=== PATIENT | female | born 1965 | race Caucasian/White ===

== ENCOUNTER 2017-04-06 14:47 | Inpatient (IN) | payer OTHER ==
[~2017-04-06] VITALS: Ht 160 cm; Wt 61.2 kg
[2017-04-06 16:45] VITALS: BP 104/67
--- NOTE | 2017-04-06 16:45 | NUR ---
Pre-admission Note: Client is seen in intake at this time. Alert and oriented x 4. Able to verbalize good understanding of the admission process. Appears mildly agitated and anxious. Able to provide consent regarding admission protocols and unit's policies. She states that she is here for ETOH and that she only drank for 1 day. Denies any seizure history. Wishes to be FULL CODE. Follows a regular diet at home. Reports that she has NKA. Denies any past medical hx. VS: BP 104/67, Pulse 104, RR 20, Temp 98.5, PL 0/10. O2 sat 95% RA. CIWA 2 - presented with anxiety and agitation. Will continue with the admission process when patient is up the unit.
--- NOTE | 2017-04-06 17:15 | NUR ---
Body Search/Behavior: Female HUMANE OFFICER attempted body search, however patient strongly refused to have it done and decided to leave the unit. HUMANE OFFICER/Charge Nurse escorted patient back to intake and encouraged patient to stay.
--- NOTE | 2017-04-06 17:25 | NUR ---
Admission Note: Client came back up to the unit at this time. Body search was done with female STORE FACILITY TECHNICIAN and female charge nurse. Patient complied. No contraband was found. Skin check done. No skin breakdown noted. No skin breakdown. Patient is a 51 year old female who states that she is here voluntarily to safely detox from ETOH under the care of Dr. Jian Garcia. No changes in LOC noted since assessing patient in intake. Remains AOx 4. Respirations even and unlabored. No SOB noted. Skin warm and dry to touch. Abdomen soft and non-distended with (+) BS in all 4 quadrants. No complains of N/V/D or constipation noted. Bladder non-distended. Voids independently. Unable to provide urine for UDS at this time and placed on 1:1. States her LMP was "a week ago." Ambulatory ad ryne with steady gait. Denies any allergies and seizure history. Requires encouragement to verbalize concerns and feelings. Appears to be limited with her information. She denies having any past medical hx and surgical hx. Also denies having a PCP at this time. She states that she only relapsed for 1 day while in sober living. She states that she was in a sober living for 3 weeks then relapsed for 1 day. Her longest period of sobriety was 6 months ago. and states "this was a couple of years ago." Educated patient on the policies protocols and procedures. Safety precautions in place. Patient reported that she does not smoke cigarettes. Will continue to monitor closely. Substance Use 1. ETOH (Vodka) drank 4 shots = 180cc x 1 day. Last drink was 04/06/2017 at 1000. Treatment History: 1. Sober Living in [place], [place] = [address] Garcia made aware of patient's arrival in the unit and will come and see the patient.
[2017-04-06] MEDS ORDERED: LORAZEPAM 2 MG/1 ML VIAL IM PRN (18:00)
[2017-04-06] MEDS ORDERED: diphenhydrAMINE 50 MG CAPSULE PO PRN (18:00)
[2017-04-06] MEDS ORDERED: HYDROXYZINE PAMOATE 25 MG CAPSULE PO PRN (18:00)
[2017-04-06] MEDS ORDERED: IBUPROFEN 400 MG TABLET PO PRN (18:00)
[2017-04-06] MEDS ORDERED: LORAZEPAM 1 MG TABLET PO PRN ×2 (18:00)
[2017-04-06] MEDS ORDERED: ACETAMINOPHEN 325 MG TABLET PO PRN (18:00)
[2017-04-06] MEDS ORDERED: THIAMINE HCL 200 MG/2 ML VIAL IM ONE (18:00)
[2017-04-06] MEDS ORDERED: MIRALAX 17 GM POWD.PACK PO PRN (18:00)
[2017-04-06] MEDS ORDERED: LOPERAMIDE HCL 2 MG CAPSULE PO PRN ×2 (18:00)
[2017-04-06] MEDS ORDERED: MAGNESIUM HYDROXIDE 30 ML LIQUID UDC PO PRN (18:00)
[2017-04-06] MEDS ORDERED: MAG HYDROX/AL HYDROX/SIMETH 30 ML LIQUID UDC PO PRN (18:00)
[2017-04-06] MEDS ORDERED: ONDANSETRON ODT 4 MG TAB.RAPDIS SL PRN (18:00)
[2017-04-06] MEDS ORDERED: CLONIDINE HCL 0.1 MG TABLET PO PRN (18:00)
[2017-04-06] MEDS ORDERED: ONDANSETRON 4 MG/2 ML VIAL IM PRN (18:00)
[2017-04-06] MEDS ORDERED: TRAZ-147 PO (18:33)
--- NOTE | 2017-04-06 18:55 | NUR ---
End of Shift Notes: Patient is a 51 year old female admitted for ETOH dependence. VS remain WNL. Last CIWA 2. Placed on 1:1 due to unable to provide urine at this time for UDS. Compliant with care and treatment. No PRNS given during the shift. Will continue to monitor closely.
--- NOTE | 2017-04-06 19:30 | NUR ---
START OF SHIFT Patient is a 51 year old female admitted today for ETOH dependency. Pt is A/O X 3,NKA,on regular diet,FULL CODE STATUS. Last CIWA 2. Placed on 1:1 due to unable to provide urine for UDS. Compliant with care and treatment. No PRNS given during day shift.Pt received in bed,resting in a stable condition,no c/o pain or distress noted,all safety measures in place per hospital policy. Will continue to monitor closely.
[2017-04-06 20:00] VITALS: BP 100/55
[2017-04-06 20:03] LABS: *URINE HCG, QUAL NEGATIVE (NEGATIVE)
[2017-04-06 20:07] LABS: BASOPHILS # (AUTO) 0.1 K/uL (0.0-8.0); BASOPHILS % (AUTO) 0.8 % (0.0-2.0); EOSINOPHILS # (AUTO) 0.1 K/uL (0.0-0.7); EOSINOPHILS % (AUTO) 0.8 % (0.0-7.0); HEMATOCRIT 41.8 % (37-47); HEMOGLOBIN 13.7 G/DL (12.0-16.0); LYMPHOCYTES # (AUTO) 2.7 K/UL (0.8-4.8); LYMPHOCYTES % (AUTO) 33.2 % (20.5-51.5); MEAN CORPUSCULAR HEMOGLOBIN 27.7 UUG (27.0-31.0); MEAN CORPUSCULAR HGB CONC 33 g/dL (32.0-37.0); MEAN CORPUSCULAR VOLUME 84.7 FL (81.0-99.0); MONOCYTES # (AUTO) 0.4 K/UL (0.1-1.30); MONOCYTES % (AUTO) 5.2 % (0.0-11.0); NEUTROPHILS # (AUTO) 4.7 K/UL (1.8-8.9); PLATELET COUNT (AUTO) 445 K/UL (150-450); RED BLOOD CELL COUNT(AUTO) 4.93 MIL/UL (4.2-5.4)
[2017-04-06 20:14] LABS: BILIRUBIN,TOTAL 0.2 mg/dL (0.2-1.0); MAGNESIUM 1.6 mg/dL (1.8-2.4); POTASSIUM 3.8 mmol/L (3.5-5.1); TOTAL PROTEIN, SERUM 8.7 g/dL (6.4-8.2)
[2017-04-06 20:17] LABS: *AMPHETAMINE, URINE NEGATIVE (NEGATIVE); *BARBITURATE, URINE NEGATIVE (NEGATIVE); *CANNABINOID, URINE NEGATIVE (NEGATIVE); *COCCAINE, URINE NEGATIVE (NEGATIVE); *OPIATE, URINE NEGATIVE (NEGATIVE); *PHENCYCLIDINE SCREEN,URINE NEGATIVE (NEGATIVE)
[2017-04-06] MEDS ORDERED: MAGNESIUM OXIDE 400 MG TABLET PO ONE (20:45)
[2017-04-06] MEDS ORDERED: LORAZEPAM 1 MG TABLET PO SCH (21:00)
[2017-04-06] MEDS ORDERED: TRAZODONE 100 MG TABLET PO SCH (21:00)
--- NOTE | 2017-04-06 21:00 | NUR ---
MD COMMUNICATION PT HAS LOW MAGNESIUM LEVEL OF 1.6,MD MADE AWARE.ONE TIME DOSE OF MAGNESIUM 800 MG PO GIVEN ORDERED.
[2017-04-06] MEDS ORDERED: TRAZODONE 100 MG TABLET ONE (21:05)
[2017-04-07] VITALS: BP 97/68
[2017-04-07 04:00] VITALS: BP 122/73
--- NOTE | 2017-04-07 06:36 | NUR ---
END OF SHIFT Patient is a 51 year old female admitted for ETOH dependence. Pt is A/O X 3,NKA,on regular diet,FULL CODE STATUS. Last CIWA= 0. Pt is anxious about being discharged,said "I was drinking only for 1 day". Compliant with care and treatment. No PRNS given during slumber room attendant .UDS is negative,alcohol level is 0.20.Pt slept 9 hrs,fluid intake was 1000 mls,voided x 1.Pt is resting in a stable condition,no c/o pain or distress noted,all safety measures in place per hospital policy. Will continue to monitor closely.
[2017-04-07 08:00] VITALS: BP 137/87
--- NOTE | 2017-04-07 08:00 | NUR ---
START OF SHIFT NOTE Received report from night nurse, 51 year old female admitted for ETOH dependence. Pt currently not on any taper but PRN'S available for s/s of withdrawal. Per endorsement pt did not receive any PRN, slept for 9 hours. Pt received in bed awake, alert and oriented x4, Skin intact warm and dry to touch. Pt educated regarding plan of care for the day with good verbal understanding. Safety measures in place. call light kept with in reach, will continue to monitor.
[2017-04-07] MEDS ORDERED: TUBERCULIN,PURIF.PROT.DERIV. 5 TU/0.1 ML TEST ID ONE (09:00)
[2017-04-07] MEDS: MULTIVITAMINS,THERAPEUTIC TABLET PO SCH (09:27)
[2017-04-07] MEDS: FOLIC ACID 1 MG TABLET PO SCH (09:27)
[2017-04-07] MEDS: THIAMINE HCL 100 MG TABLET PO SCH (09:27)
[2017-04-07 12:00] VITALS: BP 131/80
[2017-04-07] MEDS ORDERED: TRAZODONE 100 MG TABLET PO PRN (13:30)
[2017-04-07 16:00] VITALS: BP 123/73
--- NOTE | 2017-04-07 19:30 | NUR ---
START OF SHIFT Patient is a 51 year old female admitted today for ETOH dependency. Pt is A/O X 3,NKA,on regular diet,FULL CODE STATUS. Last CIWA 2. Compliant with care and treatment. No PRNS given during day shift.Pt received in bed,resting in a stable condition,no c/o pain or s/s of acute distress noted,pleasant on approach;all safety measures in place per hospital policy. Pt is scheduled for DC in the morning.Will continue to monitor closely.
--- NOTE | 2017-04-07 19:30 | NUR ---
END OF SHIFT NOTE Pt was not given any PRN medications. Vital signs WNL. Encourage Po fluids as tolerated. All needs attended. Pt endorsed to night nurse in stable condition. Last CIWA was 2. Pt set for discharge in AM. All needs attended. Pt endorsed to night nurse in stable condition.
[2017-04-07 20:00] VITALS: BP 125/88
--- NOTE | 2017-04-07 21:45 | NUR ---
PRN MED PRN TRAZODONE GIVEN ORDERED FOR C/O INSOMNIA PER PT REQUEST.WILL MONITOR.
--- NOTE | 2017-04-07 22:45 | NUR ---
PRN F/U PRN IS EFFECTIVE.PT IS RESTING IN BED WITH EYES CLOSED,NO S/S OF DISTRESS NOTED,WILL CONTINUE TO MONITOR.
[2017-04-08] VITALS: BP 118/78
[2017-04-08 04:00] VITALS: BP 123/77
--- NOTE | 2017-04-08 06:50 | NUR ---
END OF SHIFT Patient is a 51 year old female admitted today for ETOH dependency. Pt is A/O X 3,NKA,on regular diet,FULL CODE STATUS. Last CIWA=1. Pt is compliant with care and treatment. PRN Trazodone was given to help sleep and was effective.Pt slept 10 hrs,fluid intake was 500 mls,voided x 1. Pt is resting in bed in a stable condition,no c/o pain or s/s of acute distress noted;all safety measures in place per hospital policy. Pt is scheduled for DC this morning.Will continue to monitor closely.
--- NOTE | 2017-04-08 07:29 | NUR ---
START OF SHIFT Received report from night nurse. 51 year old female patient admitted on 04/06/17 for ETOH withdrawals. Pt was not on a taper and is medically cleared for discharge. Pt does not present with s/s of withdrawals, CIWA is 1 for anxiety. PRN Trazodone administered for sleep and pt slept for 9 hours. Pt ambulates with a steady gait. Pt states she is ready for discharge. No acute s/s noted at this time. Safety measures in place. Will continue to monitor.
[2017-04-08 08:02] VITALS: BP 130/85
[2017-04-08] MEDS: FOLIC ACID 1 MG TABLET PO SCH (08:13)
[2017-04-08] MEDS: MULTIVITAMINS,THERAPEUTIC TABLET PO SCH (08:13)
[2017-04-08] MEDS: THIAMINE HCL 100 MG TABLET PO SCH (08:13)
--- NOTE | 2017-04-08 09:19 | NUR ---
D/C NOTES Pt is A/O x4. V/S remain WNL. Pt denies SI/HI or hallucinations. Pt shows no s/s of acute withdrawal at this time, and is stable. has medically cleared pt for d/c. Education on Hepatitis C, smoking cessation and medication side effects provided. Pt verbalizes understanding. All pt belongings are in belonging bag, including prescriptions, pt did not have any home medications. Refuses PNU vaccination. Pt is being accompanied by [facility] at this time to be transported to rehab. All needs met.
[2017-04-08 11:07] LABS: HEPATITIS B SURFACE AG Negative (Negative)
== END 2017-04-08 09:19 | disposition home or self-care (01) | DRG 897 ==
LOC: SRC 16:00
PROVIDERS: ADMIT Internal Medicine; ATTEND Internal Medicine
PROC: HZ2ZZZZ Detoxification Services for Substance Abuse Treatment (ICD-10-PCS; principal; 2017-04-06)
DX: F10.220 Alcohol dependence with intoxication, uncomplicated (principal); E83.42 Hypomagnesemia; F32.9 Major depressive disorder, single episode, unspecified; F41.9 Anxiety disorder, unspecified; Y90.6 Blood alcohol level of 120-199 mg/100 ml; K21.9 Gastro-esophageal reflux disease without esophagitis
CPT/HCPCS: 36415; 80307; 83735; 84703; 85025; 86580; 86592; 86705; 86803; 87340; 87806; A4663; G0480